=== PATIENT | female | born 1985 | race Caucasian/White ===

== ENCOUNTER 2016-11-28 15:15 | Emergency (ER) | payer OTHER ==
[~2016-11-28] VITALS: Ht 172.7 cm; Wt 71.0 kg
[2016-11-28 15:20] VITALS: BP 109/71; PULSE 63; RESP 18; TEMP 98.3; O2SAT 100
[2016-11-28] MEDS ORDERED: BUPR150XL PO (17:02)
[2016-11-28] MEDS ORDERED: LIOT5TAB3 PO (17:02)
--- NOTE | 2016-11-28 17:35 | PD ---
HPI Chief Complaint: Cold / Flu Symptoms Time Seen by Provider: 17:31 Travel History International Travel<30 days: No Contact w/Intl Traveler<30days: No Traveled to known affect area: No History of Present Illness HPI 31-year-old female presents to the emergency Department with complaint of nasal congestion, cough, body aches that she woke up with this morning. She has been exposed to be with the flu recently. Denies fever but feels like she is feverish at this time. Took some NyQuil about 11 AM with minimal relief of symptoms. Reports ear pressure and throat irritation. Denies chest pain, shortness of breath, abdominal pain, nausea, vomiting. Reports mild headache at times but denies at this time. Denies allergies. Has history of hypothyroidism and depression. No other modifying factors or associated signs and symptoms. PFSH Past Medical History Depression: Yes Thyroid Disease: Yes Influenza Vaccination: No ?: Not LMP: LAST MONTH Social History Alcohol Use: No Tobacco Use: No Substance Use: No Allergies-Medications (Allergen,Severity, Reaction): Coded Allergies: No Known Allergies (Unverified , 11/28/16) Reported Meds & Prescriptions Reported Meds & Active Scripts Active Reported Wellbutrin Xl 24 HR (Bupropion HCl) 150 Mg Tab 150 Mg PO DAILY Liothyronine (Liothyronine Sodium) 5 Mcg Tab 5 Mcg PO DAILY Review of Systems Except as stated in HPI: all other systems reviewed are Neg Physical Exam Narrative GENERAL: Well-nourished, well-developed female patient, in no acute distress SKIN: Warm and dry. No rash. HEAD: Atraumatic. Normocephalic. EYES: Pupils equal and round at 3 mm with brisk reaction. No scleral icterus. No injection or drainage. PERRLA. ENT: Mucosa pink and moist. No erythema or exudates. No uvular edema. No uvular , palatal, or tonsillar deviation. Airway patent. EARS: Bilateral pinnae and external canals appear within normal limits. Bilateral tympanic membranes without erythema, dullness or perforation. NECK: Trachea midline. No lymphadenopathy. CARDIOVASCULAR: Regular rate and rhythm. No murmur appreciated. RESPIRATORY: No accessory muscle use. Clear to auscultation. Breath sounds equal bilaterally. GASTROINTESTINAL: Abdomen soft, non-tender, nondistended. Hepatic and splenic margins not palpable. Bowel sounds are active 4 quadrants. MUSCULOSKELETAL: No obvious deformities. No clubbing. No cyanosis. No edema. NEUROLOGICAL: Awake and alert. Oriented 3. No obvious cranial nerve deficits. Motor grossly within normal limits. Normal speech. Moves all extremities. 5/5 strength to all extremities. PSYCHIATRIC: Appropriate mood and affect; insight and judgment normal. Data Data Last Documented VS Vital Signs Date Time Temp Pulse Resp B/P Pulse Ox O2 Delivery O2 Flow Rate FiO2 11/28/16 15:20 98.3 63 18 109/71 100 Orders Influenzae A/B Antigen (11/28/16 17:31) MDM Medical Decision Making Medical Screen Exam Complete: Yes Emergency Medical Condition: Yes Medical Record Reviewed: Yes Differential Diagnosis Influenza, viral illness, acute bronchitis Narrative Course 31-year-old female physical exam and history of present illness consistent with viral illness. Has recently been exposed to others with the flu and is requesting to be tested. Patient is afebrile and nontoxic appearing. Influenza ordered. 1812: Influenza negative. Discussed viral illness and symptomatic management patient verbalized understanding and agreement. Melissa Cordero, Nasonex, ibuprofen prescribed for home. Patient is medically cleared and stable for discharge. Discussed reasons to return to the emergency department. Instructed patient to follow up with primary care provider. Patient agrees with treatment plan. The patients vital signs are stable and the patient is stable for outpatient follow-up and treatment. Patient discharged home, stable and in no acute distress. Diagnosis Primary Impression: Viral illness Referrals: Primary Care Physician Patient Instructions: Cold Symptoms (ED), General Instructions, Safe Use of Cough and Cold Medicines (ED) Additional Instructions: Ibuprofen or Tylenol as directed and as needed to reduce fever [id number] decongestants or antihistamines as directed and as needed for symptom management Get plenty of sleep/rest Drink plenty of fluids to prevent dehydration [place] diet to encourage nutrition such as crackers, fruit, applesauce, toast, soup etc. Use an air humidifier/turn off ceiling fans Follow-up with your primary care provider Return immediately to the emergency department with worsening of symptoms Med/Other Pt SpecificInfo: Prescription(s) given Scripts Mometasone Nasal Aspen (Nasonex Nasal Aspen)50 Mcg/Act Naspr2 [place]en EACH NARE DAILY PRN (NASAL CONGESTION) #1 BOTTLE Ref 0 Prov:Stephanie Clark 11/28/16 Benzonatate (Tessalon Perles)100 Mg Hid210 Mg PO TID PRN (COUGH) #21 CAP Ref 0 Prov:Stephanie Clark 11/28/16 Ibuprofen 800 Mg Qpm261 Mg PO Q6HR PRN (PAIN) #30 TAB Ref 0 Prov:Stephanie Clark 11/28/16 Disposition: 01 DISCHARGE HOME Condition: Stable Stephanie Clark Nov 28, 2016 17:35
[2016-11-28] MEDS ORDERED: BENZ100 PO (18:15)
[2016-11-28] MEDS ORDERED: MOME17I EACH NARE (18:15)
[2016-11-28] MEDS ORDERED: IBUP800T23 PO (18:15)
== END 2016-11-28 18:25 | disposition home or self-care (01) ==
LOC: PHED 15:15 → PHEFT 18:25
DX: B34.9 Viral infection, unspecified (principal)
CPT/HCPCS: 87804; 99283